=== PATIENT | female | born 1980 | race Caucasian/White ===

== ENCOUNTER → 2017-04-18 | Outpatient (CLI) | payer BC ==
[2014-11-08 13:30] VITALS: BP 111/77
[~2017-04-18] MED LIST: CIPR500T94 PO
--- NOTE | 2017-04-18 11:22 | RAD ---
Examination: Ultrasound right lower extremity venous duplex History: History of right leg pain, swelling Comparison: None available Technique: Grayscale, color Doppler 2-D, spectral waveform analysis of the right lower extremity venous system were performed. Findings: The visualized common femoral vein, superficial femoral vein, popliteal vein demonstrate normal compression and augmentation of flow. The visualized calf veins are patent. Impression: No evidence of deep venous thrombosis in the right lower extremity venous system.
== END | disposition home or self-care (01) ==
LOC: US 10:32
PROVIDERS: ATTEND Podiatrist Foot & Ankle Surgery
DX: M79.604 Pain in right leg (principal); M79.89 Other specified soft tissue disorders
CPT/HCPCS: 93971